=== PATIENT | female | born 1985 | race Two or more races ===

== ENCOUNTER 2016-12-18 19:15 | Inpatient (IN) | payer OTHER ==
--- NOTE | 2016-12-18 20:53 | ER Document Report ---
ED Medical Screen (RME) - General Chief Complaint: Abdominal Pain Stated Complaint: STOMACH PAIN Time Seen by Provider: 12/18/16 20:52 Notes: Patient reports 1 day of crampy abdominal pain and nausea. She states she does have dysuria. She states she is also had some subjective fever and chills. She states her periods have been normal and she does not believe she is . No vaginal symptoms. TRAVEL OUTSIDE OF THE [place] IN LAST 30 DAYS: No - Related Data Allergies/Adverse Reactions: iodine [Iodine] Allergy (Unverified 12/24/10 01:16) Shellfish * [Shellfish] Allergy (Unverified 12/24/10 01:16) Past Medical History Neurological Medical History: Denies: Hx Seizures Renal/ Medical History: Denies: Hx Peritoneal Dialysis Past Surgical History: Physical Exam - Vital signs Vitals: Temp Pulse Resp BP Pulse Ox 99.4 F 109 H 24 H 150/85 H 100 12/18/16 19:38 12/18/16 19:38 12/18/16 19:38 12/18/16 19:38 12/18/16 19:38 Course - Vital Signs Vital signs: Temp Pulse Resp BP Pulse Ox 99.4 F 109 H 24 H 150/85 H 100 12/18/16 19:38 12/18/16 19:38 12/18/16 19:38 12/18/16 19:38 12/18/16 19:38
[2016-12-18] MEDS ORDERED: NORMAL SALINE 1000 ML 1,000 ML IV ONE (20:54)
[2016-12-18 22:07] LABS: ABSOLUTE LYMPHOCYTES (AUTO) 1.5 10^3/uL (0.5-4.7); ABSOLUTE MONOCYTES (AUTO) 0.8 10^3/uL (0.1-1.4); ABSOLUTE NEUT (AUTO) 11.5 10^3/uL (1.7-8.2); BASOPHILS % (AUTO) 0.2 % (0-2); EOSINOPHILS % (AUTO) 0.2 % (0-6); HEMATOCRIT 33.3 % (36.0-47.0); HEMOGLOBIN 10.9 g/dL (12.0-15.5); HGB HCT DIFFERENCE -0.6; MEAN CORPUSCULAR HEMOGLOBIN 22.7 pg (27.0-33.4); MEAN CORPUSCULAR HGB CONC 32.7 g/dL (32.0-36.0); MEAN CORPUSCULAR VOLUME 70 fl (80-97); MONOCYTES % (AUTO) 5.7 % (3-13); RED BLOOD COUNT 4.79 10^6/uL (3.72-5.28); RED CELL DISTRIBUTION WIDTH 16.3 % (11.5-14.0); SEGMENTED NEUTROPHILS % (AUTO) 82.9 % (42-78); WHITE BLOOD COUNT 13.9 10^3/uL (4.0-10.5)
[2016-12-18 22:10] LABS: APPEARANCE,URINE CLEAR; BILIRUBIN,URINE NEGATIVE (NEGATIVE); GLUCOSE, URINE NEGATIVE (NEGATIVE); KETONES,URINE NEGATIVE (NEGATIVE); LEUKOCYTE ESTERASE,URINE NEGATIVE (NEGATIVE); NITRITE,URINE NEGATIVE (NEGATIVE); PROTEIN,URINE NEGATIVE (NEGATIVE); URINE SPECIFIC GRAVITY 1.002; UROBILINOGEN,URINE NEGATIVE mg/dL (<2.0)
[2016-12-18 22:18] LABS: ALANINE AMINOTRANSFERASE 26 U/L (9-52); ALBUMIN 4.3 g/dL (3.5-5.0); ALKALINE PHOSPHATASE 106 U/L (38-126); ANION GAP 15 (5-19); ASPARTATE AMINO TRANSFERASE 15 U/L (14-36); BILIRUBIN,DIRECT 0.4 mg/dL (0.0-0.4); BILIRUBIN,TOTAL 2.2 mg/dL (0.2-1.3); BLOOD UREA NITROGEN 9 mg/dL (7-20); CALCIUM 9.9 mg/dL (8.4-10.2); CARBON DIOXIDE 21 mmol/L (22-30); CHLORIDE 104 mmol/L (98-107); CREATININE RESULT 0.82 mg/dL (0.52-1.25); GLUCOSE 102 mg/dL (75-110); LIPASE 63.5 U/L (23-300); POTASSIUM 3.8 mmol/L (3.6-5.0); SODIUM 139.7 mmol/L (137-145); TOTAL PROTEIN 7.7 g/dL (6.3-8.2)
--- NOTE | 2016-12-18 23:24 | RADIOLOGY REPORT (SQ) ---
EXAM DESCRIPTION: CT ABD/PELVIS WITH IV ONLY COMPLETED DATE/TIME: 12/18/2016 10:47 pm REASON FOR STUDY: abd pain COMPARISON: None. TECHNIQUE: CT scan of the abdomen and pelvis performed using helical scanning technique with dynamic intravenous contrast injection. No oral contrast. Images reviewed with lung, soft tissue, and bone windows. Reconstructed coronal and sagittal MPR images reviewed. Delayed images for evaluation of the urinary system also acquired. All images stored on PACS. All CT scanners at this facility use dose modulation, iterative reconstruction, and/or weight based d osing when appropriate to reduce radiation dose to as low as reasonably achievable (ALARA). [facility]: Dose Right [facility]: CareDose [facility]: Dose Right [facility]: Teradose 4D [facility]: Togethera CONTRAST TYPE AND DOSE: contrast/concentration: Isovue 370.00 mg/ml; Total Contrast Delivered: 100.0 ml; Total Saline Delivered: 45.0 ml RENAL FUNCTION: None required. The patient is less than 50 years old. RADIATION DOSE: Up-to-date CT equipment and radiation dose reduction techniques were employed. CTDIv ol: 20.4 mGy. DLP: 2169 mGy-cm.. LIMITATIONS: None. FINDINGS: LOWER CHEST: No significant findings. No nodules or infiltrates. LIVER: Normal size. No masses. No dilated ducts. SPLEEN: Normal size. No focal lesions. PANCREAS: No masses. No significant calcifications. No adjacent inflammation or peripancreatic fluid collections. Pancreatic duct not dilated. GALLBLADDER: Surgically absent. ADRENAL GLANDS: No significant masses or asymmetry. RIGHT KIDNEY AND URETER: No solid masses. No significant calcifications. No hydronephrosis or hyd roureter. LEFT KIDNEY AND URETER: No solid masses. No significant calcifications. No hydronephrosis or hydr oureter. AORTA AND VESSELS: No aneurysm. No dissection. Renal arteries, SMA, celiac without stenosis. RETROPERITONEUM: Mild reactive retroperitoneal adenopathy. BOWEL AND PERITONEAL CAVITY: Perforated Diverticulitis of the mid-sigmoid colon, there are small foci of extra-luminal mesenteric free air and adjacent mild fat stranding without focal fluid collection. APPENDIX: Normal. PELVIS: Perforated Diverticulitis of the mid-sigmoid colon, there are small foci of extra-luminal mes enteric free air and adjacent mild fat stranding without focal fluid collection.. Normal bladder. ABDOMINAL WALL: No masses. No hernias. BONES: No significant or acute findings. OTHER: No other significant finding. IMPRESSION: Perforated Diverticulitis of the mid-sigmoid colon, there are small foci of extra-lumina l mesenteric free air and adjacent mild fat stranding without focal fluid collection. TECHNICAL DOCUMENTATION: JOB ID: [id number] Quality ID # [id number]: Final reports with documentation of one or more dose reduction techniques (e.g., Au tomated exposure control, adjustment of the mA and/or kV according to patient size, use of iterative reconstruction technique) 2010 [email or web address]- All Rights Reserved
[2016-12-19] MEDS ORDERED: AMPICILLIN SOD/SULBACTAM 3 GM VIAL IV ONE (01:10)
--- NOTE | 2016-12-19 01:18 | ER Document Report ---
ED GI/ - General Chief Complaint: Abdominal Pain Stated Complaint: STOMACH PAIN Time Seen by Provider: 12/18/16 20:52 Mode of Arrival: Ambulatory Information source: Patient TRAVEL OUTSIDE OF THE [place] IN LAST 30 DAYS: No - HPI Notes: 12/19/16 01:12 Patient is a 31-year-old female presents to the emergency department with report of awakening with intense abdominal pain at 0 530 a.m. on 12/18/16 and reports progression of pain since that time. The patient reports fever to 100.6 at home. She describes 3-4 episodes of loose bowel movements surrounding the pain first coming on, but has not had a bowel movement since. She reports no nausea or vomiting and she denies any bright red blood per rectum. Patient reports no vaginal discharge or chest pain or cough. - Related Data Allergies/Adverse Reactions: iodine [Iodine] Allergy (Unverified 12/24/10 01:16) Shellfish * [Shellfish] Allergy (Unverified 12/24/10 01:16) Past Medical History - General Information source: Patient - Social History Smoking Status: Never Smoker Chew tobacco use (# tins/day): No Frequency of alcohol use: Rare Drug Abuse: None Family History: Reviewed & Not Pertinent Patient has suicidal ideation: No Patient has homicidal ideation: No Neurological Medical History: Denies: Hx Seizures Renal/ Medical History: Denies: Hx Peritoneal Dialysis Past Surgical History: - Immunizations Hx Diphtheria, Pertussis, Tetanus Vaccination: Yes Review of Systems - Review of Systems Notes: REVIEW OF SYSTEMS: CONSTITUTIONAL : Denies recent illness. EENT: Denies eye, ear, throat, or mouth pain or symptoms. Denies nasal or sinus congestion or discharge. Denies throat, tongue, or mouth swelling or difficulty swallowing. CARDIOVASCULAR: Denies chest pain. Denies palpitations or racing or irregular heart beat. Denies ankle edema. RESPIRATORY: Denies cough, cold, or chest congestion. Denies shortness of breath, difficulty breathing, or wheezing. GASTROINTESTINAL: Denies abdominal distention. Denies nausea, vomiting. Denies blood in vomitus, stools, or per rectum. Denies black, tarry stools. Denies constipation. GENITOURINARY: Denies difficulty urinating, painful urination, burning, frequency, blood in urine, or discharge. FEMALE GENITOURINARY: Denies vaginal bleeding, heavy or abnormal periods, irregular periods. Denies vaginal discharge or odor. MUSCULOSKELETAL: Denies back or neck pain or stiffness. Denies joint pain or swelling. SKIN: Denies rash, lesions or sores. HEMATOLOGIC : Denies easy bruising or bleeding. LYMPHATIC: Denies swollen, enlarged glands. NEUROLOGICAL: Denies confusion or altered mental status. Denies passing out or loss of consciousness. Denies dizziness or lightheadedness. Denies headache. Denies weakness or paralysis or loss of use of either side. Denies problems with gait or speech. Denies sensory loss, numbness, or tingling. Denies seizures. PSYCHIATRIC: Denies anxiety or stress. Denies depression, suicidal ideation, or homicidal ideation. ALL OTHER SYSTEMS REVIEWED AND NEGATIVE. Dictation was performed using [employer] voice recognition software Physical Exam - Vital signs Vitals: Temp Pulse Resp BP Pulse Ox 99.4 F 109 H 24 H 150/85 H 100 12/18/16 19:38 12/18/16 19:38 12/18/16 19:38 12/18/16 19:38 12/18/16 19:38 - Notes Notes: PHYSICAL EXAMINATION: GENERAL: Well-appearing, well-nourished and in no acute distress. HEAD: Atraumatic, normocephalic. EYES: Pupils equal round and reactive to light, extraocular movements intact, conjunctiva are normal. ENT: Nares patent, oropharynx clear without exudates. Moist mucous membranes. NECK: Normal range of motion, supple without lymphadenopathy LUNGS: Breath sounds clear to auscultation bilaterally and equal. No wheezes rales or rhonchi. HEART: Regular rate and rhythm without murmurs ABDOMEN: Soft. No masses appreciated. Obese. Diffusely tender, worse to the periumbilical region. No significant guarding, but there is minimal rebound tenderness. No obvious hepatosplenomegaly. Female : deferred Musculoskeletal: Normal range of motion, no pitting or edema. No cyanosis. No CVA tenderness. NEUROLOGICAL: Cranial nerves grossly intact. Normal speech, normal gait. Normal sensory, motor exams PSYCH: Normal mood, normal affect. SKIN: Warm, Dry, normal turgor, no rashes or lesions noted. Course - Re-evaluation Re-evalutation: 12/19/16 01:18 Patient was rehydrated with IV fluids. CT scan results were reviewed with the patient, and she was advised she would need admission and possible surgical intervention which could include a colostomy. Discussion was undertaken with surgery Dr. Lutz, who agreed to evaluate the patient further in the emergency department. IV Unasyn was given. Patient was kept n.p.o. 12/19/16 01:19 - Vital Signs Vital signs: Temp Pulse Resp BP Pulse Ox 99.2 F 99 18 146/89 H 99 12/19/16 01:45 12/19/16 01:45 12/19/16 01:45 12/19/16 01:45 12/19/16 01:45 - Laboratory Result Diagrams: 12/18/16 21:55 12/18/16 21:55 Laboratory results interpreted by me: 12/18/16 12/18/16 21:55 21:55 WBC 13.9 H Hgb 10.9 L Hct 33.3 L MCV 70 L MCH 22.7 L RDW 16.3 H Seg Neutrophils % 82.9 H Lymphocytes % 11.0 L Absolute Neutrophils 11.5 H Carbon Dioxide 21 L Total Bilirubin 2.2 H Discharge - Discharge Clinical Impression: Perforated diverticulum of large intestine Condition: Stable Disposition: ADMITTED INPATIENT Admitting Provider: Surgicalist Unit Admitted: Surgical Floor
[2016-12-19] MEDS ORDERED: ONDANSETRON HCL INJ/PF 4 MG/2 ML SDV IV PRN (02:45)
[2016-12-19] MEDS ORDERED: METRONIDAZOLE 500 MG/NS RTU 100 ML IV ONE (03:15)
[2016-12-19] MEDS: METRONIDAZOLE 500 MG/NS RTU 100 ML IV SCH ×2 (03:35→17:53)
[2016-12-19] MEDS: KETOROLAC TROMETHAMINE INJ/PF 30 MG/1 ML SDV IV PRN ×3 (03:35→21:15)
[2016-12-19] MEDS ORDERED: INFLUENZA ADLT QUAD (36MOS+) 2017-18 VAC 0.5 ML SYR IM PRN (04:31)
--- NOTE | 2016-12-19 05:28 | HISTORY AND PHYSICAL E ---
History and Physical NAME: SAMPSON UMANA : 1985 AGE: 31Y ADMITTED: 12/19/2016 ROOM: ED15 REFERRING PHYSICIAN: Patient seen at the request of Dr. Eric Mike. CHIEF COMPLAINT: Abdominal pain. HISTORY OF PRESENT ILLNESS: The patient is a 31-year-old white female who presents to the emergency department complaining of acute onset of abdominal pain at 5:30 this morning with progression of pain into the pelvic region. This is associated with nausea but no vomiting. Last bowel movement was today, loose. She denies constipation, dysuria, history of trauma, or previous episodes. There is no personal or family history of colorectal disease. She had fever of 100.6 at home. She presented to the emergency department with tachycardia. She was found to have significant abdominal tenderness and had a CT scan of the abdomen and pelvis which showed findings consistent with acute sigmoid diverticulitis with contained perforations. Surgery was consulted and she was advised admission. PAST MEDICAL HISTORY: Significant for pseudotumor cerebri and hypothyroidism. ALLERGIES: Included Iodine and shellfish. MEDICATIONS: Include thyroid medications in the past but not recently. FAMILY HISTORY: Significant for Crohn's disease. SOCIAL HISTORY: The patient does not smoke or use alcohol regularly. IMMUNIZATIONS: Up-to-date. REVIEW OF SYSTEMS: CONSTITUTIONAL: The patient denies. CARDIOVASCULAR: The patient denies. GASTROINTESTINAL: The patient denies. GENITOURINARY: The patient denies. MUSCULOSKELETAL: The patient denies. PHYSICAL EXAMINATION: VITAL SIGNS: The patient examined in the emergency department at approximately 1:30 a.m., pulse rate of 100, respirations 24, blood pressure 150/85. GENERAL: No acute distress. HEAD: Normocephalic, atraumatic. NECK: No adenopathy. LUNGS: Diminished at the base, bilaterally. HEART: Without murmur or gallop. ABDOMEN: Soft, tender in the pelvic region below the umbilicus. No rigidity and no peritoneal signs. NEUROLOGIC: No focal deficit. SKIN: Warm and dry. LABORATORY PROFILE: White blood cell count 98124, hemoglobin 10.9. Bicarb of 21, total bilirubin 2.2. Urinalysis unremarkable. Independent interpretation of CT scan of the abdomen and pelvis without oral contrast, with IV contrast shows no evidence of free air or free fluid. There is contrast in the transverse colon consistent with the patient consuming Pepto-Bismol earlier today. The sigmoid colon going into the rectum is diffusely thickened with diverticulitis, pericolonic stranding; there may be small extraluminal pocket of air to the left side of the rectosigmoid junction; there appears to be a fluid-filled 2.5 cm collection to the right of the rectosigmoid colon; this may be ovarian in nature. IMPRESSION: 1. Acute sigmoid diverticulitis with a pericolonic, contained perforation, Hinchey classification I. 2. Obesity. 3. Anemia. 4. History of hypothyroidism. 5. History of pseudomyxoma cerebri. RECOMMENDATIONS: 1. Admit to the surgicalist service, keep NPO on IV fluids. He should be on his antibiotics. 2. We will start clear liquids judiciously. 3. I spent a long time talking to the patient and family and drawing diagram about her acute problem as we understand it at this time. Management will be nonoperative at this point, however, she deteriorates, interventions such as exploratory surgery may be required although unlikely. 4. We will check her thyroid function studies and she has been offered a thyroid medication for some time. 5. Once the patient's acute clinical condition subsides in 4 to 6 weeks, she would be an appropriate candidate for diagnostic colonoscopy and this was explained to her and her . DICTATING PHYSICIAN: TACO WYATT M.D. [id number] PHY#: [id number] ID: [id number] JOB#: [id number] ACCT: [id number] cc:Naveed URIAS MD
[2016-12-19 05:53] LABS: FREE T3 2.84 pg/mL (2.77-5.27)
--- NOTE | 2016-12-19 10:33 | PROGRESS NOTE E ---
Progress Note NAME: SAMPSON UMANA : 1985 AGE: 31Y DATE: 12/19/2016 ROOM: 313 SUBJECTIVE: She was admitted last night for acute sigmoid diverticulitis with small perforations but no abscess at this time. OBJECTIVE: Her abdomen is soft with minimal tenderness in the left lower quadrant area. PLAN: Gradually start her on clear liquids today. We will continue her on IV antibiotics. DICTATING PHYSICIAN: RUDDY LARKIN M.D. [id number] PHY#: [id number] ID: [id number] JOB#: [id number] ACCT: [id number] cc: >
[2016-12-19] MEDS: NORMAL SALINE 1000 ML 1,000 ML IV PRN ×2 (12:27→17:53)
[2016-12-20] MEDS: METRONIDAZOLE 500 MG/NS RTU 100 ML IV SCH ×3 (02:04→17:07)
[2016-12-20] MEDS: KETOROLAC TROMETHAMINE INJ/PF 30 MG/1 ML SDV IV PRN ×3 (03:16→17:07)
[2016-12-20 06:08] LABS: FREE T3 2.7 pg/mL (2.77-5.27)
[2016-12-20 06:22] LABS: THYROID STIMULATING HORMONE 6.88 uIU/mL (0.47-4.68)
[2016-12-20] MEDS: NORMAL SALINE 1000 ML 1,000 ML IV PRN ×2 (08:44→15:19)
--- NOTE | 2016-12-20 12:48 | PROGRESS NOTE E ---
Progress Note NAME: SAMPSON UMANA : 1985 AGE: 31Y DATE: 12/20/2016 ROOM: 313 SUBJECTIVE: Patient's pain has decreased further this morning. She is afebrile and her white count was slightly decreased at 13.9 on 12/18 and this will be repeated. Her abdomen is soft with minimal tenderness at the left lower quadrant. PLAN: Increase her diet to full-liquid diet today, and if tolerated, will increase it to soft diet tomorrow, and if her white count is normal, she could probably be discharged tomorrow on p.o. antibiotics. DICTATING PHYSICIAN: RUDDY LARKIN M.D. [id number] PHY#: [id number] ID: [id number] JOB#: [id number] ACCT: [id number] cc: >
[2016-12-21] MEDS: METRONIDAZOLE 500 MG/NS RTU 100 ML IV SCH ×3 (01:04→17:02)
[2016-12-21] MEDS: KETOROLAC TROMETHAMINE INJ/PF 30 MG/1 ML SDV IV PRN ×2 (02:43→19:13)
[2016-12-21 05:58] LABS: ABSOLUTE EOSINOPHILS # (AUTO) 0.1 10^3/uL (0.0-0.6); ABSOLUTE LYMPHOCYTES (AUTO) 1.2 10^3/uL (0.5-4.7); ABSOLUTE MONOCYTES (AUTO) 0.6 10^3/uL (0.1-1.4); ABSOLUTE NEUT (AUTO) 5.2 10^3/uL (1.7-8.2); BASOPHILS % (AUTO) 0.3 % (0-2); EOSINOPHILS % (AUTO) 1.1 % (0-6); HEMATOCRIT 25.1 % (36.0-47.0); HGB HCT DIFFERENCE 0.1; LYMPHOCYTES % (AUTO) 17.3 % (13-45); MEAN CORPUSCULAR HEMOGLOBIN 23.3 pg (27.0-33.4); MEAN CORPUSCULAR HGB CONC 33.6 g/dL (32.0-36.0); MEAN CORPUSCULAR VOLUME 70 fl (80-97); RED BLOOD COUNT 3.61 10^6/uL (3.72-5.28); RED CELL DISTRIBUTION WIDTH 16.8 % (11.5-14.0); SEGMENTED NEUTROPHILS % (AUTO) 73.3 % (42-78); WHITE BLOOD COUNT 7.1 10^3/uL (4.0-10.5)
[2016-12-21 06:00] LABS: HEMOGLOBIN 8.4 g/dL (12.0-15.5)
[2016-12-21] MEDS: NORMAL SALINE 1000 ML 1,000 ML IV PRN (11:51)
--- NOTE | 2016-12-21 15:24 | PDOC PROGRESS REPORT ---
Subjective Progress Note for:: 12/21/16 Subjective:: Feels much better. Minimal abdominal discomfort. Physical Exam Vital Signs: Temp Pulse Resp BP Pulse Ox 98.1 F 74 16 129/84 H 100 12/21/16 11:18 12/21/16 14:00 12/21/16 11:18 12/21/16 11:18 12/21/16 11:18 Intake & Output 12/20/16 12/21/16 12/22/16 06:59 06:59 06:59 Intake Total 5455 8388 Output Total 1400 2600 Balance 4055 5788 Weight 121 kg 124.4 kg General appearance: PRESENT: no acute distress, cooperative Respiratory exam: PRESENT: clear to auscultation eri Cardiovascular exam: PRESENT: RRR GI/Abdominal exam: PRESENT: other - Soft, nondistended, minimal tenderness. No peritoneal signs. Results Laboratory Results: 12/21/16 04:46 12/21/16 04:46 WBC 7.1 RBC 3.61 L Hgb 8.4 L D Hct 25.1 L MCV 70 L MCH 23.3 L MCHC 33.6 RDW 16.8 H Plt Count 222 Seg Neutrophils % 73.3 Lymphocytes % 17.3 Monocytes % 8.0 Eosinophils % 1.1 Basophils % 0.3 Absolute Neutrophils 5.2 Absolute Lymphocytes 1.2 Absolute Monocytes 0.6 Absolute Eosinophils 0.1 Absolute Basophils 0.0 Impressions: Abdomen/Pelvis CT 12/18/16 20:54 IMPRESSION: Perforated Diverticulitis of the mid-sigmoid colon, there are small foci of extra-luminal mesenteric free air and adjacent mild fat stranding without focal fluid collection. Assessment & Plan - Diagnosis (1) Perforated diverticulum of large intestine Is this a current diagnosis for this admission?: Yes Plan: Patient doing well with conservative measures. Will go ahead and advance diet. Possibly discharge patient home tomorrow if she continues to do well.
[2016-12-22] MEDS: METRONIDAZOLE 500 MG/NS RTU 100 ML IV SCH ×2 (01:54→09:22)
[2016-12-22] MEDS ORDERED: METRONIDAZOLE 500 MG TABLET PO ONE (12:30)
[2016-12-22 17:11] VITALS: BP 145/86
--- NOTE | 2016-12-22 17:12 | PDOC DISCHARGE SUMMARY ---
Discharge Summary (SDC) - Discharge Final Diagnosis: diverticulitis Discharge Date: 12/22/16 Condition: Good Treatment or Instructions: Flagyl 500 m PO TID X 10 days Prescriptions: Metronidazole [Flagyl 500 mg Tablet] 500 mg PO Q8 10 Days #30 tablet Referrals: TACO WYATT MD [ACTIVE STAFF] - () Discharge Diet: Regular
[2016-12-22] MEDS ORDERED: METRONIDAZOLE 500 MG TABLET PO SCH (22:00)
== END 2016-12-22 17:32 | disposition home or self-care (01) | DRG 392 ==
LOC: ER 19:15 → UNDOADMIN 12-19 02:23 → EH 12-19 02:23 → 3W 12-19 04:17
PROVIDERS: ADMIT Surgery; ATTEND Surgery
DX: K57.20 Diverticulitis of large intestine with perforation and abscess without bleeding (principal); Z68.42 Body mass index [BMI] 45.0-49.9, adult; D64.9 Anemia, unspecified; E66.9 Obesity, unspecified; E03.9 Hypothyroidism, unspecified; Z83.79 Family history of other diseases of the digestive system; Z91.013 Allergy to seafood
CPT/HCPCS: 36415; 74177; 80053; 81001; 81025; 83690; 84439; 84443; 84481; 85025; 99285; J0295; J1885; J7030

== ENCOUNTER 2020-01-20 21:54 | Emergency (ER) | payer OTHER ==
[2020-01-20 22:08] VITALS: BP 158/114
--- NOTE | 2020-01-20 23:26 | ER Document Report ---
ED Medical Screen (RME) - General Chief Complaint: Rib Pain Stated Complaint: RIB PAIN AND PAIN WHEN BREATHING Time Seen by Provider: 01/20/20 23:21 Mode of Arrival: Ambulatory Information source: Patient Notes: 35-year-old female presented to ED for complaint of pain to the left chest/ribs. She does not have any rash at this area. It is painful to touch. She states it is now painful to take a deep breath. She states is painful to sneeze. She states she did have chickenpox as a child but she does not have a rash. We will get blood and chest x-ray at this time and she will be seen by another provider. I have greeted and performed a rapid initial assessment of this patient. A comprehensive ED assessment and evaluation of the patient, analysis of test results and completion of medical decision making process will be conducted by an additional ED providers. TRAVEL OUTSIDE OF THE [place] IN LAST 30 DAYS: No - Related Data Allergies/Adverse Reactions: iodine [Iodine] Allergy (Verified 12/20/16 10:20) Shellfish * [Shellfish] Allergy (Verified 12/20/16 10:20) Home Medications: lisinopril Past Medical History Neurological Medical History: Denies: Hx Seizures Renal/ Medical History: Denies: Hx Peritoneal Dialysis Past Surgical History: - Immunizations Hx Diphtheria, Pertussis, Tetanus Vaccination: Yes Physical Exam - Vital signs Vitals: Temp Pulse Resp BP Pulse Ox 98.1 F 71 18 158/114 H 100 01/20/20 22:02 01/20/20 22:02 01/20/20 22:02 01/20/20 22:02 01/20/20 22:02 Course - Vital Signs Vital signs: Temp Pulse Resp BP Pulse Ox 98.1 F 71 18 158/114 H 100 01/20/20 22:02 01/20/20 22:02 01/20/20 22:02 01/20/20 22:02 01/20/20 22:02
[2020-01-20 23:50] LABS: ABSOLUTE EOSINOPHILS # (AUTO) 0.3 10^3/uL (0.0-0.6); ABSOLUTE LYMPHOCYTES (AUTO) 2.3 10^3/uL (0.5-4.7); ABSOLUTE MONOCYTES (AUTO) 0.6 10^3/uL (0.1-1.4); ABSOLUTE NEUT (AUTO) 6.1 10^3/uL (1.7-8.2); BASOPHILS % (AUTO) 0.4 % (0-2); EOSINOPHILS % (AUTO) 2.7 % (0-6); HEMATOCRIT 32.7 % (36.0-47.0); HEMOGLOBIN 10.9 g/dL (12.0-15.5); LYMPHOCYTES % (AUTO) 24.7 % (13-45); MEAN CORPUSCULAR HEMOGLOBIN 25.2 pg (27.0-33.4); MEAN CORPUSCULAR HGB CONC 33.5 g/dL (32.0-36.0); MEAN CORPUSCULAR VOLUME 75 fl (80-97); MONOCYTES % (AUTO) 6.6 % (3-13); PLATELET COUNT 338 10^3/uL (150-450); RED BLOOD COUNT 4.34 10^6/uL (3.72-5.28); RED CELL DISTRIBUTION WIDTH 15.1 % (11.5-14.0); SEGMENTED NEUTROPHILS % (AUTO) 65.6 % (42-78); TOTAL CELLS COUNTED % (AUTO) 100 %; WHITE BLOOD COUNT 9.3 10^3/uL (4.0-10.5)
--- NOTE | 2020-01-20 23:53 | EKG REPORT ---
SEVERITY:- NORMAL ECG - SINUS RHYTHM : Confirmed by: Jerrica Bauer MD 20-Jan-2020 23:51:24
[2020-01-21 00:01] LABS: INTERNATIONAL RATION (INR) 0.97; PROTHROMBIN TIME 13.1 SEC (11.4-15.4)
[2020-01-21 00:02] LABS: PARTIAL THROMBOPLASTIN TIME 28.5 SEC (23.5-35.8)
--- NOTE | 2020-01-21 00:09 | ER Document Report ---
ED General - General Chief Complaint: Rib Pain Stated Complaint: RIB PAIN AND PAIN WHEN BREATHING Time Seen by Provider: 01/20/20 23:21 Mode of Arrival: Ambulatory TRAVEL OUTSIDE OF THE [place] IN LAST 30 DAYS: No - HPI Notes: Patient is a 35-year-old female with no significant past medical history who presents with left-sided anterior rib pain. Patient states it started several days ago. She does mention that she began going to the gym again. The pain is worse with deep breathing and palpation. She states it feels sharp. No cough or fever. She denies any history of PE or DVT. No leg swelling. No recent periods of immobilization. No control. Patient states that her parents have protein S deficiency but she was tested and is negative. States that she is currently being worked up by her doctor for hypertension. - Related Data Allergies/Adverse Reactions: Shellfish * [Shellfish] Allergy (Verified 01/21/20 01:17) Home Medications: lisinopril Past Medical History - General Information source: Patient - Social History Smoking Status: Never Smoker Family History: Reviewed & Not Pertinent Neurological Medical History: Denies: Hx Seizures Renal/ Medical History: Denies: Hx Peritoneal Dialysis Past Surgical History: - Immunizations Hx Diphtheria, Pertussis, Tetanus Vaccination: Yes Review of Systems - Review of Systems Notes: CONSTITUTIONAL: No fever, fatigue or weight loss. SKIN: No rash. HENT: No congestion, ear pain, or sore throat. EYES: No recent vision problems or eye pain. ENDOCRINE: No thyroid problems. No polyuria or polydipsia. CARDIOVASCULAR: Positive for left anterior rib pain RESPIRATORY: No cough, shortness of breath, congestion, or wheezing. GASTROINTESTINAL: No abdominal pain, nausea, vomiting, bloody stools or diarrhea. MUSCULOSKELETAL: No joint pain or swelling. NEUROLOGIC: No seizures. No headache, focal weakness or sensory changes. HEMATOLOGIC: No unusual bruising or bleeding. PSYCHIATRIC: No depression or anxiety. Physical Exam - Vital signs Vitals: Temp Pulse Resp BP Pulse Ox 98.1 F 71 18 158/114 H 100 01/20/20 22:02 01/20/20 22:02 01/20/20 22:02 01/20/20 22:02 01/20/20 22:02 - General General appearance: Appears well Notes: VITAL SIGNS: Within normal limits. GENERAL: No acute distress, non-toxic appearance. HEAD: Normal with no signs of head trauma. EYES: EOMI, conjunctiva normal, no discharge. EARS: Hearing grossly intact. NOSE: Normal. NECK: Normal range of motion, no tenderness, supple, no lymphadenopathy, No adenopathy, no JVD. CHEST: Clear breath sounds bilaterally. No wheezes, rales, or rhonchi. CARDIAC: Regular rate and rhythm. S1 and S2, without murmurs, gallops, or rubs. VASCULAR: No Edema. ABDOMEN: Normal and soft with no tenderness, no masses or pulsatile masses. GENITOURINARY: Normal, No tenderness MUSCULOSKELETAL: Good range of motion of all major joints. Extremities without clubbing, cyanosis or edema. Discomfort to palpation of left anterior rib. No rash. NEUROLOGICAL: Alert and oriented x 3. No focal sensory or strength deficits. Speech normal. Follows commands appropriately. PSYCHIATRIC: Normal Affect, judgement and mood. SKIN: Normal appearance with no rashes or lesions. Course - Re-evaluation Re-evalutation: 01/21/20 01:35 Heart score is 1. Patient's presentation does appear that this is a muscular pain as it is worse with palpation. However, her D-dimer is elevated. I will obtain a CT scan to rule out a PE. The CTA was negative for PE. Likely, this is muscular. She will be given Toradol. I did give her strict return precautions including worsening pain, any shortness of breath. I also informed her to return if she develops a rash in that area. Patient is very agreeable to the plan. She was instructed on anti-inflammatories, Tylenol, warm compresses. She will follow up with her PCP. 01/21/20 02:12 - Vital Signs Vital signs: Temp Pulse Resp BP Pulse Ox 98.1 F 71 18 158/114 H 100 01/20/20 22:02 01/20/20 22:02 01/20/20 22:02 01/20/20 22:02 01/20/20 22:02 - Laboratory Result Diagrams: 01/20/20 23:34 01/20/20 23:34 Laboratory results interpreted by me: 01/20/20 01/20/20 01/20/20 23:34 23:34 23:34 Hgb 10.9 L Hct 32.7 L MCV 75 L MCH 25.2 L RDW 15.1 H D-Dimer 0.65 H Sodium 135.1 L - Diagnostic Test Radiology reviewed: Image reviewed, Reports reviewed - EKG Interpretation by Me EKG shows normal: Sinus rhythm Rate: Normal Rhythm: NSR Additional EKG results interpreted by me: 01/21/20 00:09 Sinus rhythm at a rate of 67. QTc 452. No acute ST changes. EKG is similar to previous. Discharge - Discharge Clinical Impression: Rib pain on left side Chest pain Qualifiers: Chest pain type: unspecified Qualified Code(s): R07.9 - Chest pain, unspecified Condition: Stable Disposition: HOME, SELF-CARE Instructions: Anti-Inflammatory Medication ([facility]), Chest Wall Pain ([facility]) Additional Instructions: Please follow-up with your family doctor. You may take Tylenol and ibuprofen as directed. Your work-up today is reassuring. Please return to the ER for any worsening symptoms.
[2020-01-21 00:10] LABS: ALBUMIN 3.9 g/dL (3.5-5.0); ALKALINE PHOSPHATASE 79 U/L (38-126); ANION GAP 6 (5-19); ASPARTATE AMINO TRANSFERASE 20 U/L (14-36); BILIRUBIN,TOTAL 0.4 mg/dL (0.2-1.3); BLOOD UREA NITROGEN 15 mg/dL (7-20); CALCIUM 9.2 mg/dL (8.4-10.2); CARBON DIOXIDE 25 mmol/L (22-30); CHLORIDE 104 mmol/L (98-107); GLUCOSE 106 mg/dL (75-110); POTASSIUM 4.5 mmol/L (3.6-5.0)
--- NOTE | 2020-01-21 00:29 | RADIOLOGY REPORT (SQ) ---
EXAM DESCRIPTION: Site: CHEST 2 VIEWS RP: XR CHEST 2 VIEWS Views: 2 CLINICAL HISTORY: 35 years Female; Left chest/rib pain hurts to breathe; COMPARISON: 04/13/2015 FINDINGS: Lungs: Lungs are clear, with no focal infiltrate, pneumothorax, or pleural effusion. Mediastinum: Mediastinum is within normal limits for this positioning. Bones: Bony structures are unremarkable. IMPRESSION: 1. No acute cardiothoracic abnormality.
--- NOTE | 2020-01-21 01:59 | RADIOLOGY REPORT (SQ) ---
EXAM DESCRIPTION: CTA CHEST RadLex: CT CHEST ANGIOGRAPHY WITHOUT THEN WITH IV CONTRAST CLINICAL HISTORY: 35 years Female; right rib pain, elevated dimer 0.65; TECHNIQUE: CT angiogram of the chest using intravenous contrast. MIP reconstructions were performed. All CT scans at this facility use dose modulation, iterative reconstruction, and/or weight based dosing when appropriate to reduce radiation dose to as low as reasonably achievable. COMPARISON: 04/13/2015 FINDINGS: Pulmonary arteries: No filling defects in the central pulmonary arteries. Lungs: Lungs are clear. No pneumothorax or pleural effusion. Mediastinum:No mediastinal mass or adenopathy. Mediastinal vascular structures are unremarkable. Bones: No focal rib lesions. No acute fractures. No acute chest wall edema. Gallbladder is surgically absent IMPRESSION: 1. No CT evidence for pulmonary embolism. 2. No acute pulmonary findings. 3. No rib/chest wall lesions.
[2020-01-21] MEDS ORDERED: KETOROLAC TROMETHAMINE INJ/PF 30 MG/1 ML SDV IV ONE (02:02)
== END 2020-01-21 02:20 | disposition home or self-care (01) ==
LOC: ER 21:54
DX: R07.81 Pleurodynia (principal); R07.1 Chest pain on breathing; R79.89 Other specified abnormal findings of blood chemistry; Z79.899 Other long term (current) drug therapy; Z91.013 Allergy to seafood
CPT/HCPCS: 99285; 96374; 36415; 84703; 85025; 85610; 85730; 80053; 84484; 85379; 71046; 71275; 93005; 93010; J1885